=== PATIENT | male | born 1980 | race Caucasian/White ===

== ENCOUNTER 2023-02-24 23:07 | Emergency (ER) | payer MEDICAID ==
[~2023-02-24] VITALS: Ht 182.9 cm; Wt 90.9 kg
[2023-02-24 23:18] VITALS: BP 117/90
[2023-02-24] MEDS ORDERED: TETanus/Pertussis (Acell)/Diphther VAC/PF (Tdap-Adult) 0.5ml syringe IMVAC ONE (23:40)
== END 2023-02-25 00:28 ==
LOC: ER 23:08
DX: M25.511 Pain in right shoulder (principal); M25.512 Pain in left shoulder; F17.200 Nicotine dependence, unspecified, uncomplicated
CPT/HCPCS: 70450; 99284